=== PATIENT | female | born 1970 | race Hispanic/Latino ===

== ENCOUNTER 2017-02-24 19:52 | Emergency (ER) | payer SELFPAY | END 2017-02-24 20:35 | disposition left against medical advice (07) | LOC: ED 19:52 | DX: Z53.21 Procedure and treatment not carried out due to patient leaving prior to being seen by health care provider (principal) ==

== ENCOUNTER 2018-11-02 04:09 | Emergency (ER) | payer SELFPAY ==
[2018-11-02 05:21] LABS: Bacteria,Urine 1+ /HPF (Negative); Bilirubin,Urine NEG (Negative); Blood,Urine LG (Negative); Color,Urine Yellow (Yellow); Mucus,Urine FEW /HPF; Protein,Urine <15 mg/dL mg/dL (Negative); Urobilinogen,Urine < 2.0 mg/dL (<2.0)
[2018-11-02 05:26] LABS: Basophils % (Auto) 0.2 % (0.0-1.8); Eosinophils # (Auto) 0.1 K/mm3 (0.0-0.4); Eosinophils % (Auto) 0.5 % (0.0-4.3); Hematocrit 39.1 % (30.3-42.9); Hemoglobin 13.2 gm/dl (10.1-14.3); Lymphocytes # (Auto) 1.2 K/mm3 (1.2-5.4); Lymphocytes % (Auto) 8.5 % (13.4-35.0); Mean Corpuscular HGB Conc 34 % (30-34); Mean Corpuscular Volume 97 fl (79-97); Monocytes # (Auto) 0.9 K/mm3 (0.0-0.8); Monocytes % (Auto) 6.1 % (0.0-7.3); Platelet Count 204 K/mm3 (140-440); Red Blood Count 4.05 M/mm3 (3.65-5.03); Red Cell Distribution Width 13.9 % (13.2-15.2)
[2018-11-02 05:47] LABS: Alanine Aminotransferase 5 units/L (7-56); Albumin 3.9 g/dL (3.9-5); BUN/Creatinine Ratio 13; Blood Urea Nitrogen 9 mg/dL (7-17); Calcium 8.9 mg/dL (8.4-10.2); Hemolysis Index 2
[2018-11-02] MEDS ORDERED: ZOFRAN IV ONE (07:10)
[2018-11-02] MEDS ORDERED: NACL 0.9% 1000 ML 1,000 ML IV ONE (07:10)
[2018-11-02] MEDS ORDERED: MORPHINE IV ONE (07:10)
--- NOTE | 2018-11-02 07:49 | Emergency Department Report ---
ED Abdominal Pain HPI - General Chief Complaint: Abdominal Pain Stated Complaint: ABD PAIN/VAGINAL BLEEDING Time Seen by Provider: 11/02/18 07:08 Source: patient Mode of arrival: Ambulatory Limitations: No Limitations - History of Present Illness Initial Comments: This is a 48-year-old female nontoxic, well nourished in appearance, no acute signs of distress presents to the ED with c/o of vaginal bleeding and abdominal 5 days. Patient denies any nausea or vomiting. Patient describes abdominal pain as cramping and aching with level of 3/10 diffuse. Patient denies chest pain, short of breath, fever, chills, headache, stiff neck, numbness or tin gling. Patient denies any diarrhea or constipation. Patient denies any recent travels. Patient denies any allergies. MD Complaint: abdominal pain, other (vaginal bleeding) -: days(s) (5) Location: diffuse Radiation: none Migration to: no migration Severity: mild Severity scale (0 -10): 3 Quality: cramping, aching Consistency: constant Improves With: nothing Worsens With: nothing Associated Symptoms: denies other symptoms. denies: nausea, vomiting, diarrhea, fever, chills, constipation, dysuria, hematemesis, hematochezia, melena, hematuria, anorexia, syncope - Related Data Allergies Allergy/AdvReac Type Severity Reaction Status Date / Time No Known Allergies Allergy Verified 11/02/18 04:24 ED Review of Systems ROS: Stated complaint: ABD PAIN/VAGINAL BLEEDING Other details as noted in HPI Constitutional: denies: chills, fever Eyes: denies: eye pain, eye discharge, vision change ENT: denies: ear pain, throat pain Respiratory: denies: cough, shortness of breath, wheezing Cardiovascular: denies: chest pain, palpitations Endocrine: no symptoms reported Gastrointestinal: abdominal pain. denies: nausea, vomiting, diarrhea Genitourinary: abnormal menses. denies: urgency, dysuria, discharge Musculoskeletal: denies: back pain, joint swelling, arthralgia Skin: denies: rash, lesions Neurological: denies: headache, weakness, paresthesias Psychiatric: denies: anxiety, depression Hematological/Lymphatic: denies: easy bleeding, easy bruising ED Past Medical Hx - Past Medical History Previous Medical History?: No - Surgical History Past Surgical History?: Yes Additional Surgical History: laposcopy - Social History Smoking Status: Current Every Day Smoker Substance Use Type: Alcohol, Marijuana ED Physical Exam - General Limitations: No Limitations General appearance: alert, in no apparent distress - Head Head exam: Present: atraumatic, normocephalic - Eye Eye exam: Present: normal appearance - Neck Neck exam: Present: normal inspection, full ROM. Absent: tenderness, meningismus, lymphadenopathy - Respiratory Respiratory exam: Present: normal lung sounds bilaterally. Absent: respiratory distress, wheezes, rales, rhonchi, stridor, chest wall tenderness, accessory muscle use, decreased breath sounds, prolonged expiratory - Cardiovascular Cardiovascular Exam: Present: regular rate, normal rhythm, normal heart sounds. Absent: irregular rhythm, systolic murmur, diastolic murmur, rubs, gallop - GI/Abdominal GI/Abdominal exam: Present: soft, tenderness (diffuse), normal bowel sounds. Absent: distended, guarding, rebound, rigid, diminished bowel sounds - Expanded GI/Abdominal Exam Expanded GI/Abdominal exam: Absent: psoas sign, Oro's sign, Rovsing's sign, tenderness at Mcburney's Point, ascites - Extremities Exam Extremities exam: Present: normal inspection, full ROM - Back Exam Back exam: Present: normal inspection, full ROM. Absent: tenderness, CVA tenderness (R), CVA tenderness (L), muscle spasm, paraspinal tenderness, vertebral tenderness, rash noted - Neurological Exam Neurological exam: Present: alert, oriented X3, normal gait - Psychiatric Psychiatric exam: Present: normal affect, normal mood - Skin Skin exam: Present: warm, dry, intact, normal color. Absent: rash ED Course Vital Signs 11/02/18 11/02/18 11/02/18 04:27 07:46 07:47 Temperature 98.3 F Pulse Rate 107 H Respiratory 18 18 18 Rate Blood Pressure 162/39 O2 Sat by Pulse 99 99 Oximetry 11/02/18 07:52 Temperature Pulse Rate 108 H Respiratory Rate Blood Pressure 110/35 O2 Sat by Pulse 99 Oximetry - Reevaluation(s) Reevaluation #1: 11/02/18 07:49 Patient is speaking in full sentences with no signs of distress noted. Reevaluation #2: 11/02/18 11:17 Patient is resting comfortably with no signs of distress. Patient was told about her CT results and awaiting OBGYN consult. Reevaluation #3: 11/02/18 12:26 Ken shucker stated patient went outside to make a phone call and has not returned yet. ED Medical Decision Making - Lab Data Result diagrams: 11/02/18 04:36 11/02/18 04:36 - Medical Decision Making This is a 48-year-old female that presents with abdominal pain and dysmenorrhea. Patient is stable and was examined by me. CT has been obtained and US has been obtained with possible ovarian abscess. Patient was notified of the results and was informed that a [employer] will be consulted for further evaluation and treatment. While pending OBGYN call back, Alfredo shucker told me that patient when all side and hasn't returned. Patient was called several times on the phone number listed with no answer or returning back. Patient left AGAINST MEDICAL ADVICE. Critical care attestation.: If time is entered above; I have spent that time in minutes in the direct care of this critically ill patient, excluding procedure time. ED Disposition Clinical Impression: Dysmenorrhea Abdominal pain Qualifiers: Abdominal location: generalized Qualified Code(s): R10.84 - Generalized abdominal pain Disposition: Z-07 ELOPED Is pt being admited?: No Condition: Undetermined
[2018-11-02 08:01] VITALS: BP 110/35
--- NOTE | 2018-11-02 08:51 | Cat Scan Report ---
CT ABDOMEN AND PELVIS WITH CONTRAST HISTORY: Right-sided abdominal pain for 6 days with constipation and loss of appetite COMPARISON: None. TECHNIQUE: Axial CT images were obtained through the abdomen and pelvis after 100 cc of Omnipaque 300 intravenously. Sagittal and coronal reformatted images. All CT scans at this location are performed using CT dose reduction for ALARA by means of automated exposure control. FINDINGS: CT ABDOMEN: Lung Bases: Clear. Liver: No significant abnormality. Biliary: No significant abnormality. Spleen: No significant abnormality. Unenlarged. Pancreas: No significant abnormality. Adrenals: No significant abnormality. Kidneys: No significant abnormality. Lymphatics: No lymphadenopathy. Vasculature: No significant abnormality. Bowel/Peritoneum: No evidence for obstruction or obvious mass. There are a few borderline small bowel loops containing fluid in the lower abdomen. The terminal ileum is decompressed. The colon is normal . Normal appendix. CT PELVIS: : The uterus is anteverted and unremarkable. No significant uterine fibroid disease. Normal endomet rium. There are bilateral complex cystic adnexal lesions. This may represent mild bilateral hydrosalp inx. There is mild nonspecific fat stranding and trace fluid in the right side of the pelvis adjacent to the right adnexa. Subtle enhancement in the right adnexal cystic structure is also suspected. Thi s may represent PID/early tubo-ovarian abscess. The appendix and terminal ileum are also in this vici nity but do not appear to be inflamed Osseous Structures: No significant abnormality. Additional Findings: None IMPRESSION: Bilateral complex cystic adnexal lesions as described which probably represents hydrosalpinx. There i s mild inflammation surrounding the right adnexa concerning for PID/early tubo-ovarian abscess. Pleas e correlate with the clinical presentation of the patient. Signer Name: Stephen Bardales Jr, MD Signed: 11/02/2018 8:46 AM Workstation Name: [id number]
--- NOTE | 2018-11-02 11:27 | Ultrasound Report ---
ULTRASOUND PELVIC COMPLETE ULTRASOUND TRANSVAGINAL HISTORY: Pelvic pain, rule out abscess. TECHNIQUE: Transabdominal and transvaginal imaging with color Doppler interrogation. COMPARISON: CT abdomen and pelvis with contrast performed the same day. FINDINGS: The uterus is anteverted. The uterus measures 9.0 x 2.5 x 5.0 cm. A 2.4 x 2.0 cm intramural fibroid i s noted in the left lateral wall, slightly posterior. No large submucosal fibroid is identified. The cervix is unremarkable. The endometrial stripe measures 7 mm. No abnormality. Complex bilateral cystic structures are again identified in both adnexa. On ultrasound there are 3 cy sts in the right adnexa measuring up to 2 cm in diameter. Larger more complex cysts are identified in the left adnexa measuring up to 7.0 x 2.1 cm. Hydrosalpinx is suggested on the left side. No pelvic fluid collection is identified. There is mild debris in the bladder. No obvious mass or wall thickening. IMPRESSION: Complex bilateral adnexal lesions. On ultrasound these appear to represent cysts on the right side an d mild hydrosalpinx on the left side. Uterine fibroid. No discrete abscess is demonstrated on ultrasound. Mild debris in the bladder could represent mild cystitis. Signer Name: Stephen Bardales Jr, MD Signed: 11/02/2018 11:22 AM Workstation Name: [id number]
== END 2018-11-02 11:10 | disposition left against medical advice (07) ==
LOC: ED 04:09
DX: N94.6 Dysmenorrhea, unspecified (principal); F17.200 Nicotine dependence, unspecified, uncomplicated; F12.10 Cannabis abuse, uncomplicated
CPT/HCPCS: 36415; 74177; 76830; 76856; 80053; 81001; 84703; 85025; 87086; 96374; 96375; 99284; J2270; J2405; J7030; Q9967